=== PATIENT | female | born 1990 | race Caucasian/White ===

== ENCOUNTER 2016-03-27 16:41 | Emergency (ER) | payer OTHER ==
[~2016-03-27] VITALS: Ht 162.6 cm; Wt 77.1 kg
[~2016-03-27 16:41] MED LIST: AMOX-CLAV 875-1 EACH PO; NEXPLANON68 M1; ORTHO TRI-CYCLE1 TA1 PO; PERCOCET 325 MG1 TA2 PO; PERCOCET 5-3251 EACH PO; PREDNISONE10 M2 PO; REGLAN10 MG PO; SUMATRIPTAN SU100 M1 PO; SUMATRIPTAN SU100 MG; ZOFRAN ODT4 MG PO; ZOFRAN4 M1 PO; ZOFRAN4 M1 SL; magic mouthwash PO
[2016-03-27 17:17] LABS: ABSOLUTE BASOPHIL COUNT 0 /CUMM (0.0-0.2); ABSOLUTE EOSINOPHIL COUNT 0.1 /CUMM (0.0-0.7); ABSOLUTE GRANULOCYTE CT 19.8 /CUMM (1.4-6.5); ABSOLUTE LYMPH COUNT 0.7 /CUMM (1.2-3.4); ABSOLUTE MONOCYTE COUNT 0.7 /CUMM (0.10-0.60); BASOPHIL % 0.2 % (0.0-2.0); EOSINOPHIL % 0.4 % (0-5); HEMATOCRIT 46.9 % (37-47); MEAN CORPUSCULAR HGB 28.8 PG (27.0-31.0); MEAN CORPUSCULAR HGB CONC 33.6 G/DL (33.0-37.0); MEAN CORPUSCULAR VOLUME 85.9 FL (81.0-99.0); MEAN PLATELET VOLUME 8.1 FL (7.4-10.4); PLATELET COUNT 308 /CUMM (130-400); RBC DISTRIBUTION WIDTH 13.3 % (11.5-14.5); RED BLOOD CELL CT 5.46 /CUMM (4.20-5.40); WHITE BLOOD CELL COUNT 21.4 /CUMM (4.8-10.8)
[2016-03-27 17:19] LABS: GRANULOCYTE % 92.8 % (42.2-75.2)
--- NOTE | 2016-03-27 17:29 | ED GI/GU/ABDOMINAL COMPLAINT ---
History of Present Illness General Chief Complaint: General Adult Stated Complaint: "IM SO SICK I CANT KEEP ANYTHING DOWN" Source: patient Exam Limitations: no limitations Vital Signs & Intake/Output Vital Signs & Intake/Output Vital Signs Date Time Temp Pulse Resp B/P Pulse O2 O2 Flow FiO2 Ox Delivery Rate 03/27 2132 98.0 88 18 130/75 99 Room Air 03/27 2013 97.7 85 16 131/64 100 Room Air 03/27 1812 97.2 96 16 148/78 97 Room Air 03/27 1651 97.2 111 20 136/96 100 Room Air Room Air Allergies Coded Allergies: beet (HIVES 01/04/16) nickel (RASH 01/04/16) venom-honey bee (ANAPHYLAXIS 01/04/16) Reconcile Medications Amoxicillin/Clavulanate Potass (Amox-Clav 875-125 MG Tablet) 875 MG-125 MG TABLET 1 TAB PO BID ANTIBIOTIC (Reported) Dicyclomine Hydrochloride (Bentyl) 10 MG CAPSULE 1 CAP PO TID PRN abdominal spasms Etonogestrel (Nexplanon) 68 MG IMPLANT CONTROL (Reported) [magic mouthwash] 10 ML PO Q6H PRN SORE THROAT ONE THIRD mAALOX, ONE THIRD LIDOCAINE, ONE THIRD bENADRYL Ondansetron (Zofran Odt) 4 MG TAB.RAPDIS 1-2 TAB SL TID PRN nausea/vomiting Sumatriptan Succinate 100 MG TABLET 1 TAB PO AD PRN MIGRAINES (Reported) may repeat in 2 hours; do not exceed 200 mg in 24 hours Triage Note: PT TO ED WITH C/O NAUSEA AND VOMITING SINCE THIS MORNING "EVERYONE IS SICK IN THE HOUSE, , KIDS". Triage Nurses Notes Reviewed? yes ? n Is pt currently ? No Onset: Gradual Duration: day(s): (1) Timing: no prior history Quality/Severity: moderate Severity Numbers: 7 Location: generalized abdomen Radiation: no radiation Activities at Onset: none Prior Abdominal Problems: none Past Sexual History: Unobtainable at this time Sexually Active: No HPI: Patient is a 25-year-old female presenting to the emergency department with chief complaint of nausea vomiting and diarrhea in general is abdominal pain that's been going on since today. She reports that her kids are sick with similar symptoms at home. Positive malaise. Denies fevers or chills. No blood in the stool. Denies any urinary frequency or urgency or dysuria. (EDDA AMEZQUITA) Past History Travel History Traveled to [place] past 21 day No Medical History Any Pertinent Medical History? see below for history Neurological: migraine EENT: NONE Cardiovascular: NONE Respiratory: NONE Gastrointestinal: NONE Hepatic: NONE Renal: NONE Musculoskeletal: NONE Psychiatric: NONE Endocrine: NONE Blood Disorders: NONE Cancer(s): NONE BUSINESS INFO CONSULTANT/Reproductive: NONE Tetanus Vaccine: 07/15/12 Surgical History Surgical History: cholecystectomy, Psychosocial History What is your primary language Yi Tobacco Use: Current Daily Use Daily Tobacco Use Amount/Type: => 5 Cigarettes daily ETOH Use: denies use Illicit Drug Use: denies illicit drug use Family History Hx Contributory? No (EDDA AMEZQUITA) Review of Systems Review of Systems Constitutional: Reports: malaise. Comments Review of systems: See HPI, All other systems negative. Constitutional, no chills fever or weight loss HEENT: No visual changes no sore throat no congestion Cardiovascular: No chest pain ,palpitation , orthopnea or ankle swelling Skin, no jaundice no rashes Respiratory: No dyspnea cough sputum or hemoptysis GI: Positive nausea vomiting and diarrhea : No dysuria No hematuria Muscle skeletal: no back pain, no neck pain, Neurologic: No numbness no confusion Psych: No stress anxiety Immunology: No splenectomy or history of AIDS (EDDA AMEZQUITA) Physical Exam Physical Exam General Appearance: well developed/nourished, no apparent distress, alert, awake , comfortable Gastrointestinal: normal bowel sounds, soft, tenderness Comments: Well-developed well-nourished person in no acute distress HEENT: Pupils equally round and reactive to light and accommodation. Nose is atraumatic. Neck: Normal inspection Back: Nontender, no CVA tenderness. Full range of motion Cardiovascular: Regular rate and rhythms no murmurs rubs or gallops, normal JVP Respiratory: Chest nontender. No respiratory distress.breath sounds clear to auscultation bilaterally Abdomen: Soft, diffuse tenderness to palpation, no rebound or guarding, nondistended, no appreciable organomegaly. Normal bowel sounds. No ascites Extremity: No edema Neuro: Alert oriented x3 Skin: No appreciable rash on exposed skin, skin is warm and dry. Psych: Mood and affect is normal, memory and judgment is normal. Core Measures ACS in differential dx? No Severe Sepsis Present: No Septic Shock Present: No (AIDEE ZAIDI,EDDA) Progress Differential Diagnosis: UTI/pyelo, diverticulitis, diverticulosis, gastroenteritis, gastritis, enteritis, C. difficile Plan of Care: Orders Procedure Date/time Status Add-on Test (ER Only) 03/27 1837 Active CULTURE,STOOL 03/27 1837 Active C.DIFFICILE 03/27 1837 Active HUMAN BETA HCG SCREEN 03/27 171 Complete URINALYSIS 03/27 1651 Complete COMPREHENSIVE METABOLIC PANEL 03/27 1651 Complete CBC WITHOUT DIFFERENTIAL 03/27 1651 Complete Laboratory Tests 03/27/162034: Urine Color STRAW, Urine Clarity CLEAR, Urine pH 6.5, Ur Specific [place] <= 1.005, Urine Protein NEG, Urine Ketones 40 H, Urine Nitrite NEG, Urine Bilirubin NEG, Urine Urobilinogen 0.2, Ur Leukocyte Esterase NEG, Ur Microscopic EXAM NOT REQUIRED, Urine Hemoglobin NEG, Urine Glucose NEG 03/27/161709: Anion Gap 19 H, Estimated GFR > 60, BUN/Creatinine Ratio 18.6, Glucose 109 H, Calcium 9.9, Total Bilirubin 0.8, AST 31, ALT 42, Alkaline Phosphatase 113, Total Protein 9.0 H, Albumin 4.9, Globulin 4.1, Albumin/Globulin Ratio 1.2, Total Beta HCG NEGATIVE, CBC w Diff MAN DIFF ORDERED, RBC 5.46 H, MCV 85.9, MCH 28.8, RDW 13.3, MPV 8.1, Gran % 92.8 H, Lymphocytes % 3.4 L, Monocytes % 3.2, Eosinophils % 0.4, Basophils % 0.2, Absolute Granulocytes 19.8 H, Segmented Neutrophils 95 H, Band Neutrophils 1, Absolute Lymphocytes 0.7 L, Lymphocytes 1 L, Monocytes 3, Absolute Monocytes 0.7 H, Absolute Eosinophils 0.1, Absolute Basophils 0, Platelet Estimate VERIFIED BY SMEAR, Normocytic RBCs VERIFIED, Normochromic RBCs VERIFIED, PUBS MCHC 33.6, Fld Total RBCs Counted 100 Microbiology 03/27 1841 STOOL: Clostridium difficile Toxin A & B - RECD 03/27 1841 STOOL: Stool Culture - RECD Diagnostic Imaging: Viewed by Me: CT Scan. Discussed w/RAD: CT Scan. Radiology Impression: PATIENT: BRENNEN TRAMMELL PRESENT AGE: 25 PATIENT ACCOUNT NO: [id number] : 88 LOCATION: [facility] ORDERING PHYSICIAN: EDDA ZAIDI SERVICE DATE: 03/27/16 EXAM TYPE: CAT - CT ABD & PELVIS W IV CONTRAST EXAMINATION: CT ABDOMEN AND PELVIS WITH CONTRAST CLINICAL INFORMATION: Abdominal pain and diarrhea. COMPARISON: CT abdomen and pelvis with contrast 02/26/2015. TECHNIQUE: Multidetector volumetric imaging was performed of the abdomen and pelvis before and after the IV administration of 93 mL of Optiray 320 intravenous contrast. Sagittal and coronal reformatted images were obtained on the technologist's workstation. DLP: 327 mGy-cm. FINDINGS: LUNG BASES: The visualized lung bases are unremarkable. LIVER, GALLBLADDER, AND BILIARY TREE: The liver is normal in size, shape, and attenuation. No focal hepatic lesion or biliary ductal dilatation is present. The gallbladder is surgically absent. PANCREAS: Unremarkable. SPLEEN: Unremarkable. ADRENAL GLANDS: Unremarkable. KIDNEYS AND URETERS: The kidneys are normal in size and enhance homogeneously, without focal lesions. There is no appreciable nephrolithiasis or hydroureteronephrosis of either kidney or renal collecting system. No ureteral stones are identified. BLADDER: Unremarkable. GASTROINTESTINAL TRACT: Normal anatomic orientation of the stomach relative to the duodenum. Normal caliber of abdominal and pelvic bowel loops, without evidence of obstruction or ileus. Mild circumferential thickening of the cecum and ascending colon with liquid material identified within the right hemicolon. This finding is nonspecific but can be seen in the setting of diarrhea. Normal-appearing appendix within the right lower quadrant of the abdomen. No organizing intra-abdominal fluid collections or free intraperitoneal air. ABDOMINAL WALL: No significant hernia is appreciated. LYMPH NODES: No significant abdominal or pelvic adenopathy. VASCULAR: Unremarkable. PELVIC VISCERA: Unremarkable. OSSEOUS STRUCTURES: No acute osseous abnormality. Normal alignment of the imaged thoracolumbar spine. IMPRESSION: Circumferential thickening of the cecum and ascending colon without significant pericolonic inflammatory changes. Liquid material is identified within the right hemicolon. This finding is nonspecific but can be seen in the setting of diarrhea. An acute infectious or inflammatory colitis cannot be excluded. Otherwise, unremarkable CT of the abdomen and pelvis. Initial ED EKG: none Comments: Gen. patient is afebrile with diffuse abdominal pain on exam. She reports last antibiotic use was approximately a month and half ago. Nothing more recent than that. She does report sick contacts at home with similar symptoms. Likely viral gastroenteritis. We will assess CBC, CMP to check for any electrolyte abnormality. We'll obtain stool sample. Patient informed of all lab results. Feeling much better after Zofran and Phenergan and Toradol. 03/27/2016 9:08:39 PM patient drinking marie roxana without nausea or vomiting at this time. We sent off a stool culture. We will call her if it is positive. (EDDA AMEZQUITA) Departure Departure Time of Disposition: 2058 Disposition: HOME OR SELF CARE Condition: Stable Clinical Impression Primary Impression: Nausea and vomiting Qualifiers: Vomiting type: unspecified Vomiting Intractability: non-intractable Qualified Code: R11.2 - Nausea with vomiting, unspecified Secondary Impressions: Diarrhea Qualifiers: Diarrhea type: unspecified type Qualified Code: R19.7 - Diarrhea, unspecified Referrals: SHREYA NEGRETE,ROJELIO Figueroa (PCP/Family) TARA NEGRETE,KYLEE Otoole Additional Instructions: Follow-up with your primary care physician as well as gastroenterology. We will call you about your stool cultures. Take Bentyl as prescribed abdomen discomfort. Take Zofran as prescribed for nausea. Return for worsening symptoms or concerns. Increase fluids. YOUR PRESCRIPTIONS WERE SENT TO [facility]. Departure Forms: Customer Survey General Discharge Information Prescriptions: Current Visit Scripts Dicyclomine Hydrochloride (Bentyl) 1 CAP PO TID PRN abdominal spasms #20 CAP Ondansetron (Zofran Odt) 1-2 TAB SL TID PRN nausea/vomiting #10 TAB (EDDA AMEZQUITA) PA/CLOTHING DESIGNER Co-Sign Statement Statement: ED Attending supervision documentation- [X] I saw and evaluated the patient. I have also reviewed all the pertinent lab results and diagnostic results. I agree with the findings and the plan of care as documented in the PA's/CLOTHING DESIGNER's documentation. [] I have reviewed the ED Record and agree with the PA's/CLOTHING DESIGNER's documentation. [] Additions or exceptions (if any) to the PAs/CLOTHING DESIGNER's note and plan are summarized below: [] (LINDY ARREAGA DO
--- NOTE | 2016-03-27 20:12 | CT SCAN REPORT ---
EXAMINATION: CT ABDOMEN AND PELVIS WITH CONTRAST CLINICAL INFORMATION: Abdominal pain and diarrhea. COMPARISON: CT abdomen and pelvis with contrast 02/26/2015. TECHNIQUE: Multidetector volumetric imaging was performed of the abdomen and pelvis before and after the IV administration of 93 mL of Optiray 320 intravenous contrast. Sagittal and coronal reformatted images were obtained on the technologist's workstation. DLP: 327 mGy-cm. FINDINGS: LUNG BASES: The visualized lung bases are unremarkable. LIVER, GALLBLADDER, AND BILIARY TREE: The liver is normal in size, shape, and attenuation. No focal hepatic lesion or biliary ductal dilatation is present. The gallbladder is surgically absent. PANCREAS: Unremarkable. SPLEEN: Unremarkable. ADRENAL GLANDS: Unremarkable. KIDNEYS AND URETERS: The kidneys are normal in size and enhance homogeneously, without focal lesions. There is no appreciable nephrolithiasis or hydroureteronephrosis of either kidney or renal collecting system. No ureteral stones are identified. BLADDER: Unremarkable. GASTROINTESTINAL TRACT: Normal anatomic orientation of the stomach relative to the duodenum. Normal caliber of abdominal and pelvic bowel loops, without evidence of obstruction or ileus. Mild circumferential thickening of the cecum and ascending colon with liquid material identified within the right hemicolon. This finding is nonspecific but can be seen in the setting of diarrhea. Normal-appearing appendix within the right lower quadrant of the abdomen. No organizing intra-abdominal fluid collections or free intraperitoneal air. ABDOMINAL WALL: No significant hernia is appreciated. LYMPH NODES: No significant abdominal or pelvic adenopathy. VASCULAR: Unremarkable. PELVIC VISCERA: Unremarkable. OSSEOUS STRUCTURES: No acute osseous abnormality. Normal alignment of the imaged thoracolumbar spine. IMPRESSION: Circumferential thickening of the cecum and ascending colon without significant pericolonic inflammatory changes. Liquid material is identified within the right hemicolon. This finding is nonspecific but can be seen in the setting of diarrhea. An acute infectious or inflammatory colitis cannot be excluded. Otherwise, unremarkable CT of the abdomen and pelvis.
[2016-03-27] MEDS ORDERED: BENTYL10 M1 PO (21:10)
[2016-03-27] MEDS ORDERED: ZOFRAN ODT4 M1 SL (21:10)
[2016-03-27 21:33] VITALS: BP 130/75
== END 2016-03-27 21:36 ==
LOC: ERH 16:41
PROVIDERS: Emergency Medicine
DX: R11.2 Nausea with vomiting, unspecified (principal); R19.7 Diarrhea, unspecified
CPT/HCPCS: 74177; 81003; 81025; 87045; 96361; 96365; 96375; J1885; J2405; J2550

== ENCOUNTER 2017-04-28 16:23 | Emergency (ER) | payer OTHER ==
[~2017-04-28] VITALS: Ht 162.6 cm; Wt 89.8 kg
[~2017-04-28 16:23] MED LIST changes: +BENTYL10 M1 PO; +ZOFRAN ODT4 M1 SL
[2017-04-28 16:32] VITALS: BP 149/74
--- NOTE | 2017-04-28 18:49 | ED GI/GU/ABDOMINAL COMPLAINT ---
History of Present Illness General Chief Complaint: General Adult Stated Complaint: ?KIDNEY ISSUES Source: patient Exam Limitations: no limitations Vital Signs & Intake/Output Vital Signs & Intake/Output Vital Signs Date Time Temp Pulse Resp B/P B/P Pulse O2 O2 Flow FiO2 Mean Ox Delivery Rate 04/28 1632 97.8 103 18 149/74 99 Room Air ED Intake and Output 04/29 0000 04/28 1200 Intake Total 0 Output Total Balance 0 Intake, Oral 0 Patient 198 lb Weight Weight Reported by Patient Measurement Method Allergies Coded Allergies: beet (HIVES 01/04/16) nickel (RASH 01/04/16) venom-honey bee (ANAPHYLAXIS 01/04/16) Reconcile Medications Amoxicillin/Clavulanate Potass (Amox-Clav 875-125 MG Tablet) 875 MG-125 MG TABLET 1 TAB PO BID ANTIBIOTIC (Reported) Dicyclomine Hydrochloride (Bentyl) 10 MG CAPSULE 1 CAP PO TID PRN abdominal spasms Etonogestrel (Nexplanon) 68 MG IMPLANT CONTROL (Reported) [magic mouthwash] 10 ML PO Q6H PRN SORE THROAT ONE THIRD mAALOX, ONE THIRD LIDOCAINE, ONE THIRD bENADRYL Ondansetron (Zofran Odt) 4 MG TAB.RAPDIS 1-2 TAB SL TID PRN nausea/vomiting Oxycodone HCl/Acetaminophen (Percocet 5-325 MG Tablet) 5 MG-325 MG TABLET 1 TAB PO BID PRN PAIN Peg 3350/Na Sulf,Bicarb,Cl/KCl (Golytely Solution) 236-22.74G SOLN.RECON 8 OZ PO AD CONSTIPATION Sumatriptan Succinate 100 MG TABLET 1 TAB PO AD PRN MIGRAINES (Reported) may repeat in 2 hours; do not exceed 200 mg in 24 hours Triage Note: PT STATES SHE IS HAVING BAD PAIN IN HER RIGHT FLANK AREA FOR THE PAST 3 DAYS. PT WENT TO SEE OBGYN STATES THEY TRIED TO PUT A MURANA IN FOR ALMOST 1 HOUR AND WAS UNABLE TO GET IT PLACED. PT WENT TO [facility] TODAY FOR TESTING. PT WAS TOLD THAT THE RESULTS WOULD NOT BE BACK FOR A FEW DAYS AND PT STATES SHE IS VERY UNCOMFORTABLE AND WAS TOLD BY PER OBGYN TO COME TO ED. Triage Nurses Notes Reviewed? yes ? n Is pt currently ? No Onset: Abrupt Duration: day(s): (3) Timing: recent history Radiation: no radiation Activities at Onset: none No Modifying Factors: none HPI: 26-year-old female comes into the emergency room for further evaluation of right -sided abdominal pain. Pain radiates to the right flank area. Some associated nausea. Denies any vaginal discharge. Denies any urinary symptoms. She reports that she felt like she had a low-grade fever. She had a renal ultrasound that was ordered by her tone artist apprentice. (Ryan Hemphill) Past History Travel History Traveled to [place] past 21 day No Medical History Any Pertinent Medical History? see below for history Neurological: migraine EENT: NONE Cardiovascular: NONE Respiratory: NONE Gastrointestinal: NONE Hepatic: NONE Renal: NONE Musculoskeletal: NONE Psychiatric: NONE Endocrine: NONE Blood Disorders: NONE Cancer(s): NONE CHASER HELPER/Reproductive: NONE History of CDIFF: No Tetanus Vaccine: 07/15/12 Surgical History Surgical History: cholecystectomy, Psychosocial History What is your primary language Lithuanian Tobacco Use: Current Daily Use Daily Tobacco Use Amount/Type: => 5 Cigarettes daily ETOH Use: occasional use Illicit Drug Use: denies illicit drug use Family History Hx Contributory? No (Ryan Hemphill) Review of Systems Review of Systems Constitutional: Reports: no symptoms. EENTM: Reports: no symptoms. Respiratory: Reports: no symptoms. Cardiovascular: Reports: no symptoms. GI: Reports: see HPI. Genitourinary: Reports: see HPI. Musculoskeletal: Reports: no symptoms. Skin: Reports: no symptoms. Neurological/Psychological: Reports: no symptoms. Hematologic/Endocrine: Reports: no symptoms. Immunologic/Allergic: Reports: no symptoms. All Other Systems: Reviewed and Negative (Ryan Hemphill) Physical Exam Physical Exam General Appearance: well developed/nourished, alert, awake, mild distress Head: atraumatic, normal appearance Eyes: Bilateral: normal appearance, EOMI. Ears, Nose, Throat, Mouth: hearing grossly normal, moist mucous membrane Neck: normal inspection Respiratory: normal breath sounds, no respiratory distress Cardiovascular: regular rate/rhythm Gastrointestinal: soft, tender rlq, no guarding, no rebound tenderness Back: normal inspection Extremities: normal range of motion Neurologic/Psych: awake, alert, oriented x 3, normal gait, normal mood/affect Skin: intact, normal color Core Measures ACS in differential dx? No Sepsis Present: No Sepsis Focused Exam Completed? No (Jonn ZAIDI,Ryan) Progress Differential Diagnosis: appendicitis, diverticulitis, ectopic , gastritis, kidney stone, ovarian cyst, ovarian torsion, UTI/pyelo Plan of Care: Orders Procedure Date/time Status LIPASE 04/28 1832 Complete COMPREHENSIVE METABOLIC PANEL 04/28 1832 Complete CBC WITHOUT DIFFERENTIAL 04/28 1832 Complete URINE 04/28 164 Complete URINALYSIS 04/28 164 Complete Laboratory Tests 04/28/17 1900: Anion Gap 12, Estimated GFR > 60, BUN/Creatinine Ratio 21.3, Glucose 84, Calcium 9.5, Total Bilirubin 0.2, AST 21, ALT 23, Alkaline Phosphatase 101, Total Protein 7.6, Albumin 4.2, Globulin 3.4, Albumin/Globulin Ratio 1.2, Lipase 82, CBC w Diff NO MAN DIFF REQ, RBC 4.71, MCV 85.3, MCH 28.7, MCHC 33.7, RDW 12.9, MPV 8.3, Gran % 50.7, Lymphocytes % 36.7, Monocytes % 9.8 H, Eosinophils % 2.4, Basophils % 0.4, Absolute Granulocytes 3.9, Absolute Lymphocytes 2.8, Absolute Monocytes 0.8 H, Absolute Eosinophils 0.2, Absolute Basophils 0 04/28/17 164: Urine Color YEL, Urine Clarity CLEAR, Urine pH 7.0, Ur Specific [place] 1.015, Urine Protein NEG, Urine Ketones NEG, Urine Nitrite NEG, Urine Bilirubin NEG, Urine Urobilinogen 0.2, Ur Leukocyte Esterase NEG, Ur Microscopic EXAM NOT REQUIRED, Urine Hemoglobin NEG, Urine Glucose NEG, Urine Test NEGATIVE Diagnostic Imaging: Viewed by Me: CT Scan. Discussed w/RAD: CT Scan. Radiology Impression: PATIENT: BRENNEN TRAMMELL PRESENT AGE: 26 PATIENT ACCOUNT NO: [id number] : 88 LOCATION: [facility] ORDERING PHYSICIAN: Ryan ZAIDI SERVICE DATE: 04/28/17 EXAM TYPE: CAT - CT ABD & PELVIS W/O IV CONTRAS EXAMINATION: CT ABDOMEN AND PELVIS WITHOUT CONTRAST CLINICAL INFORMATION: Right flank pain. COMPARISON: Renal ultrasound same date. Prior CT scans dated 03/27/2016 and 02/26/2015. TECHNIQUE: Multidetector volumetric imaging was performed from the superior aspect of the liver through the pubic symphysis. Sagittal and coronal reformatted images were obtained on the technologist's workstation. DLP: 472.88 mGy-cm FINDINGS: LUNG BASES: There are 2, tiny 4 and 3 mm subpleural pulmonary nodules in the posterior basal segment of the left lower lobe (series 3 images 1, 4/744). These are unchanged compared with 11/25/2012, likely intraparenchymal lymph nodes. Incidental inferior accessory fissure at the right base, an anatomic variant. LIVER, GALLBLADDER, AND BILIARY TREE: The liver is normal in size, shape, and attenuation. No focal hepatic lesion or biliary ductal dilatation is present. Status post cholecystectomy. Stable, normal caliber bile ducts. PANCREAS: Unremarkable. SPLEEN: Unremarkable. ADRENAL GLANDS: Unremarkable. KIDNEYS AND URETERS: The kidneys are normal in size, shape, and attenuation. No hydronephrosis, hydroureter, or calculi seen. No perinephric stranding. BLADDER: Unremarkable. GASTROINTESTINAL TRACT: The visualized esophagus is normal. The stomach is distended with food. Normal caliber small bowel without obstruction. No mesenteric adenopathy or free fluid. There is fecalization of the terminal ileum. This is most commonly due to incompetence of the ileocecal valve. Bacterial overgrowth is an additional consideration; no pericecal inflammation. Normal appendix is present in the right lower quadrant overlying the iliac vessels. There is a moderate amount of stool in the ascending and transverse colon. No bowel wall inflammation to suggest colitis. No pericolonic fat stranding. [address] scans suggested some colonic pathology; none is evident here. No free air or ascites. ABDOMINAL WALL: A tiny fat-containing umbilical hernia is stable. LYMPH NODES: Normal. VASCULAR: Unremarkable. PELVIC VISCERA: The uterus and adnexa are unremarkable. No pelvic free fluid or lymphadenopathy. OSSEOUS STRUCTURES: Osteitis condense ilii again noted, a benign inflammatory condition of the sacroiliac joints. Spina bifida occulta at S1, an anatomic variant. No acute osseous finding. IMPRESSION: 1. No clear etiology for right flank pain. 2. Fecalization of the terminal ileum. This most likely represents incompetence of the ileocecal valve and stool reflux. There are signs of right- sided constipation. No evidence for colitis. 3. Status post cholecystectomy. Normal caliber bile ducts. DICTATED BY: Amol Kumar MD DATE/TIME DICTATED:1929 SENIOR WEALTH ADVISOR:JERSON DATE/TIME TRANSCRIBED:04/28/171929 CONFIDENTIAL, DO NOT COPY WITHOUT APPROPRIATE AUTHORIZATION. <Electronically signed in Other Vendor System> SIGNED BY: Amol Kumar MD 04/28/171948 Initial ED EKG: none (Jonn ZAIDI,Ryan) Departure Departure Disposition: HOME OR SELF CARE Condition: Stable Clinical Impression Primary Impression: Abdominal pain Secondary Impressions: Constipation Referrals: Amol Ochoa MD (PCP/Family) Nathan Crawford MD Additional Instructions: Take GoLYTELY as prescribed. Use MiraLAX and stool softener every other day. Follow-up with baling machine tender provided. Return if any concerns worsening symptoms. Please go over all results of today's visit with your primary care doctor. Contact your primary care doctor to let them know you were here in the emergency room. There may be nonspecific findings which may not be related to your visit today here in the emergency room but may require further evaluation and chronic monitoring by your primary care doctor. If you had a laceration today the chance of foreign body always remains. You should follow-up with your primary care doctor for recheck in 3-5 days for a wound check. If you had an x-ray done there is a chance that a fracture could have been missed on initial read and you should follow-up with your primary care doctor for repeat x-rays if symptoms persist. If your blood pressure was elevated here in the emergency room please have rechecked by [facility] primary care doctor within the next 48. If you were prescribed a narcotic here in the emergency room or any type of controlled substances you're not allowed to drive while taking this medication or operate any type of heavy machinery. Narcotics can make you feel lightheaded dizziness nausea and can cause constipation. You may need to picking machine operator helper a stool softener. Thank you for choosing [facility] emergency room. Please return to the emergency room immediately if you have any other concerns worsening of symptoms. Departure Forms: Customer Survey General Discharge Information Prescriptions: Current Visit Scripts Peg 3350/Na Sulf,Bicarb,Cl/KCl (Golytely Solution) 8 OZ PO AD #1 BOT Comments 04/28/2017 9:03:03 PM Patient clinically looks well. Patient is in no apparent distress. Patient is nontoxic-appearing. No acute kidney stone. No evidence of appendicitis. Patient started on medication for potential constipation. No acute abdomen on exam. She is referred to a baling machine tender. Return if any other concerns worsening symptoms. She understands and agrees with plan of care. (Jonn ZAIDI,Ryan) PA/SPORTS BOOK BOARD ATTENDANT Co-Sign Statement Statement: ED Attending supervision documentation- I saw and evaluated the patient. I have also reviewed all the pertinent lab results and diagnostic results. I agree with the findings and the plan of care as documented in the PA's/SPORTS BOOK BOARD ATTENDANT's documentation. x I have reviewed the ED Record and agree with the PA's/SPORTS BOOK BOARD ATTENDANT's documentation. [] Additions or exceptions (if any) to the PAs/SPORTS BOOK BOARD ATTENDANT's note and plan are summarized below: [] (Brown NEGRETE,[place])
[2017-04-28 19:26] LABS: ABSOLUTE BASOPHIL COUNT 0 /CUMM (0.0-0.2); ABSOLUTE EOSINOPHIL COUNT 0.2 /CUMM (0.0-0.7); ABSOLUTE GRANULOCYTE CT 3.9 /CUMM (1.4-6.5); ABSOLUTE LYMPH COUNT 2.8 /CUMM (1.2-3.4); ABSOLUTE MONOCYTE COUNT 0.8 /CUMM (0.10-0.60); BASOPHIL % 0.4 % (0.0-2.0); EOSINOPHIL % 2.4 % (0-5); GRANULOCYTE % 50.7 % (42.2-75.2); HEMATOCRIT 40.2 % (37-47); MEAN CORPUSCULAR HGB 28.7 PG (27.0-31.0); MEAN CORPUSCULAR HGB CONC 33.7 G/DL (33.0-37.0); MEAN CORPUSCULAR VOLUME 85.3 FL (81.0-99.0); MEAN PLATELET VOLUME 8.3 FL (7.4-10.4); PLATELET COUNT 348 /CUMM (130-400); RBC DISTRIBUTION WIDTH 12.9 % (11.5-14.5); RED BLOOD CELL CT 4.71 /CUMM (4.20-5.40); WHITE BLOOD CELL COUNT 7.7 /CUMM (4.8-10.8)
--- NOTE | 2017-04-28 19:49 | CT SCAN REPORT ---
EXAMINATION: CT ABDOMEN AND PELVIS WITHOUT CONTRAST CLINICAL INFORMATION: Right flank pain. COMPARISON: Renal ultrasound same date. Prior CT scans dated 03/27/2016 and 02/26/2015. TECHNIQUE: Multidetector volumetric imaging was performed from the superior aspect of the liver through the pubic symphysis. Sagittal and coronal reformatted images were obtained on the technologist's workstation. DLP: 472.88 mGy-cm FINDINGS: LUNG BASES: There are 2, tiny 4 and 3 mm subpleural pulmonary nodules in the posterior basal segment of the left lower lobe (series 3 images 1, 4/744). These are unchanged compared with 11/25/2012, likely intraparenchymal lymph nodes. Incidental inferior accessory fissure at the right base, an anatomic variant. LIVER, GALLBLADDER, AND BILIARY TREE: The liver is normal in size, shape, and attenuation. No focal hepatic lesion or biliary ductal dilatation is present. Status post cholecystectomy. Stable, normal caliber bile ducts. PANCREAS: Unremarkable. SPLEEN: Unremarkable. ADRENAL GLANDS: Unremarkable. KIDNEYS AND URETERS: The kidneys are normal in size, shape, and attenuation. No hydronephrosis, hydroureter, or calculi seen. No perinephric stranding. BLADDER: Unremarkable. GASTROINTESTINAL TRACT: The visualized esophagus is normal. The stomach is distended with food. Normal caliber small bowel without obstruction. No mesenteric adenopathy or free fluid. There is fecalization of the terminal ileum. This is most commonly due to incompetence of the ileocecal valve. Bacterial overgrowth is an additional consideration; no pericecal inflammation. Normal appendix is present in the right lower quadrant overlying the iliac vessels. There is a moderate amount of stool in the ascending and transverse colon. No bowel wall inflammation to suggest colitis. No pericolonic fat stranding. [address] scans suggested some colonic pathology; none is evident here. No free air or ascites. ABDOMINAL WALL: A tiny fat-containing umbilical hernia is stable. LYMPH NODES: Normal. VASCULAR: Unremarkable. PELVIC VISCERA: The uterus and adnexa are unremarkable. No pelvic free fluid or lymphadenopathy. OSSEOUS STRUCTURES: Osteitis condense ilii again noted, a benign inflammatory condition of the sacroiliac joints. Spina bifida occulta at S1, an anatomic variant. No acute osseous finding. IMPRESSION: 1. No clear etiology for right flank pain. 2. Fecalization of the terminal ileum. This most likely represents incompetence of the ileocecal valve and stool reflux. There are signs of right-sided constipation. No evidence for colitis. 3. Status post cholecystectomy. Normal caliber bile ducts.
[2017-04-28] MEDS ORDERED: GOLYTELY SOLU4000 ML PO (20:10)
== END 2017-04-28 20:13 ==
LOC: ERH 16:23
PROVIDERS: Physician Assistant Medical
DX: K59.00 Constipation, unspecified (principal)
CPT/HCPCS: 74176; 81003; 81025; J1885; J3101

== ENCOUNTER 2017-08-30 13:34 | Emergency (ER) | payer OTHER ==
[~2017-08-30] VITALS: Ht 165.1 cm; Wt 86.2 kg
[~2017-08-30 13:34] MED LIST changes: +AUGMENTIN 500-1 EACH PO; +CYCLOBENZAPRINE10 M1 PO; +DICYCLOMINE HCL10 M1 PO; +GOLYTELY SOLU4000 ML PO; +KETOROLAC TROME10 M1 PO; +MAGNESIUM CITR296 ML PO; +VICODIN 5-3001 EACH PO; +ZOFRAN4 M2 PO
--- NOTE | 2017-08-30 14:30 | ED GENERAL ADULT ---
See Addendum History of Present Illness General Chief Complaint: Female Urogenital Problems Stated Complaint: R SIDED BACK PAIN, URINE RETENTION Source: patient Exam Limitations: no limitations Vital Signs & Intake/Output Vital Signs & Intake/Output Vital Signs Date Time Temp Pulse Resp B/P B/P Pulse O2 O2 Flow FiO2 Mean Ox Delivery Rate 08/30 1350 97.8 100 20 142/90 98 Room Air Allergies Coded Allergies: beet (HIVES 01/04/16) nickel (RASH 01/04/16) venom-honey bee (ANAPHYLAXIS 01/04/16) Reconcile Medications Norgestimate-Ethinyl Estradiol (Ortho Tri-Cyclen 28 Tablet) [id number] 28 TABLET 1 TAB PO DAILY BC (Reported) Triage Note: PT TO ED C/O RIGHT FLANK PAIN RADIATING TO RIGHT GROIN SINCE WEDNESDAY. C/O FEELING LIKE SHE CANNOT EMPTY HER BLADDER Triage Nurses Notes Reviewed? yes Onset: Abrupt Duration: day(s): Timing: recent history : No Patient currently breastfeeds: No HPI: 08/30/17 27-year-old female presents to the emergency department complaining of right- sided flank pain. The patient states that she developed right-sided flank pain yesterday. She has a history of sponge kidney disease and also kidney stones. Past surgical history for , tooth extractions and cholecystectomy. She denies any fever. Her periods have been irregular. Dr Wharton is her urologist. Past History Travel History Traveled to [place] past 21 day No Medical History Any Pertinent Medical History? see below for history Neurological: migraine EENT: NONE Cardiovascular: NONE Respiratory: NONE Gastrointestinal: NONE Hepatic: NONE Renal: "KIDNEY PROBLEMS" Musculoskeletal: NONE Psychiatric: NONE Endocrine: NONE Blood Disorders: NONE Cancer(s): NONE TROMMEL TENDER/Reproductive: NONE History of CDIFF: No Tetanus Vaccine: 07/15/12 Surgical History Surgical History: cholecystectomy, Psychosocial History What is your primary language Maori Tobacco Use: Current Daily Use Daily Tobacco Use Amount/Type: => 5 Cigarettes daily ETOH Use: denies use Illicit Drug Use: marijuana Family History Hx Contributory? No Review of Systems Review of Systems Constitutional: Denies: fever. EENTM: Reports: no symptoms. Respiratory: Denies: short of breath. Cardiovascular: Reports: no symptoms. GI: Reports: see HPI. Genitourinary: Reports: no symptoms. Musculoskeletal: Reports: no symptoms. Skin: Denies: rash. Neurological/Psychological: Reports: no symptoms. Hematologic/Endocrine: Reports: no symptoms. Immunologic/Allergic: Reports: no symptoms. Physical Exam Physical Exam General Appearance: well developed/nourished, alert, awake, anxious, moderate distress Head: atraumatic, normal appearance Eyes: Bilateral: normal appearance, PERRL, EOMI. Ears, Nose, Throat: normal pharynx, normal ENT inspection Neck: normal inspection, supple, full range of motion Respiratory: normal breath sounds, chest non-tender, no respiratory distress Cardiovascular: regular rate/rhythm Peripheral Pulses: 4+ radial (R), 4+ radial (L) Gastrointestinal: tenderness Back: CVA tenderness (R) Extremities: normal range of motion, no edema Neurologic/Psych: no motor/sensory deficits, awake, alert, oriented x 3 Skin: intact, normal color, warm/dry Core Measures ACS in differential dx? No CVA/TIA Diagnosis: No Sepsis Present: No Sepsis Focused Exam Completed? No Progress Differential Diagnoses I considered the following diagnoses in my evaluation of the patient: [ Ureterolithiasis, pyelonephritis, appendicitis, ovarian cyst, ectopic ] Plan of Care: Orders Procedure Date/time Status CULTURE,URINE 08/30 1440 Active URINE 08/30 1440 Active URINALYSIS 08/30 1440 Active COMPREHENSIVE METABOLIC PANEL 08/30 1440 Active CBC WITHOUT DIFFERENTIAL 08/30 1440 Active Current Medications Sig/Francisco Start time Last Medication Dose Stop Time Status Admin Sodium Chloride 1,000 ML BOLUS ONE 08/30 1445 AC (Normal Saline 0.9%) 08/30 1544 Microbiology 08/30 1440 URINE ROUT: Urine Culture - ORD Initial ED EKG: none Departure Departure Disposition: STILL A PATIENT Condition: Stable Clinical Impression Primary Impression: Flank pain Referrals: Gabriela NEGRETE,Amol Figueroa (PCP/Family) Departure Forms: Customer Survey General Discharge Information Comments Treated with IV fluids and pain medications. Labs and urine were sent. The patient was signed out to DEJUAN Lunsford at 3 PM. Critical Care Note Critical Care Note Critical Care Time: non-applicable
[2017-08-30] MEDS ORDERED: ORTHO TRI-CYCL1 EACH PO (14:31)
[2017-08-30 15:11] LABS: ABSOLUTE BASOPHIL COUNT 0 /CUMM (0.0-0.2); ABSOLUTE EOSINOPHIL COUNT 0.2 /CUMM (0.0-0.7); ABSOLUTE GRANULOCYTE CT 5.5 /CUMM (1.4-6.5); ABSOLUTE LYMPH COUNT 1.8 /CUMM (1.2-3.4); ABSOLUTE MONOCYTE COUNT 0.6 /CUMM (0.10-0.60); BASOPHIL % 0.4 % (0.0-2.0); EOSINOPHIL % 2.1 % (0-5); GRANULOCYTE % 67.2 % (42.2-75.2); MEAN CORPUSCULAR HGB 28.7 PG (27.0-31.0); MEAN CORPUSCULAR HGB CONC 33.4 G/DL (33.0-37.0); MEAN CORPUSCULAR VOLUME 86.1 FL (81.0-99.0); MEAN PLATELET VOLUME 7.6 FL (7.4-10.4); PLATELET COUNT 389 /CUMM (130-400); RBC DISTRIBUTION WIDTH 13.7 % (11.5-14.5); RED BLOOD CELL CT 4.53 /CUMM (4.20-5.40); WHITE BLOOD CELL COUNT 8.1 /CUMM (4.8-10.8)
--- NOTE | 2017-08-30 16:39 | CT SCAN REPORT ---
EXAMINATION: CT ABDOMEN AND PELVIS WITHOUT CONTRAST CLINICAL INFORMATION: 27-year-old female patient with right flank and left lower quadrant pain. COMPARISON: CT exams of the abdomen and pelvis on 06/15/2013, 02/26/2015, 03/27/2016, and the most recent done 04/28/2017. TECHNIQUE: Multidetector volumetric imaging was performed from the superior aspect of the liver through the pubic symphysis. Sagittal and coronal reformatted images were obtained on the technologist's workstation. DLP: 409 mGy-cm FINDINGS: Title Manager: The patient's gallbladder has been surgically removed. LUNG BASES: There is mild dependent atelectasis of both lower lobes. A small subpleural nodule in the left lower lobe is stable. Series 2, image 1. LIVER, GALLBLADDER, AND BILIARY TREE: The liver is normal in size, shape, and attenuation. No focal hepatic lesion or biliary ductal dilatation is present. The gallbladder has been surgically removed. PANCREAS: Unremarkable. SPLEEN: Unremarkable. ADRENAL GLANDS: Unremarkable. KIDNEYS AND URETERS: A tiny punctate nonobstructing calculus in the lower pole right kidney is unchanged. The kidneys are normal in size, shape, and attenuation. No hydronephrosis, or hydroureter. No perinephric stranding. BLADDER: Partially filled and unremarkable. GASTROINTESTINAL TRACT: The small and large bowel are unremarkable. The appendix is unremarkable. ABDOMINAL WALL: No significant hernia is appreciated. LYMPH NODES: Normal. VASCULAR: Unremarkable. PELVIC VISCERA: Unremarkable. OSSEOUS STRUCTURES: Unremarkable. Bilateral osteitis condensans ilii. IMPRESSION: The punctate nonobstructing calculus in the lower pole of the right kidney is unchanged and stable.
[2017-08-30] MEDS ORDERED: IBUPROFEN800 M1 PO (17:07)
[2017-08-30] MEDS ORDERED: PERCOCET 5-3251 EACH PO (17:07)
[2017-08-30 17:23] VITALS: BP 129/87
== END 2017-08-30 17:24 ==
LOC: ERH 13:34
PROVIDERS: Emergency Medicine
DX: R10.31 Right lower quadrant pain (principal)
CPT/HCPCS: 74176; 81001; 81025; 87086; 96374; 96375; J1885; J2405